=== PATIENT | male | born 1975 | race Hispanic/Latino ===

== ENCOUNTER 2019-12-31 23:51 | Emergency (ER) | payer BC ==
[~2019-12-31] VITALS: Ht 177.8 cm; Wt 108.9 kg
[2019-12-31] MEDS ORDERED: KETOROLAC TROMETHAMINE 30 MG/ML VIAL IV STA (23:57)
[2019-12-31] MEDS ORDERED: ONDANSETRON HCL INJ 2MG/ML 2ML 2 MG/ML VIAL IV STA (23:57)
[2020-01-01 00:18] LABS: BASOPHILS % 0.3 % (0.0-1.0); EOSINOPHILS # (AUTO) 0.3 (0.0-0.4); HEMATOCRIT 44.1 % (38.2-49.6); HEMOGLOBIN 15.1 g/dL (14.0-18.0); LYMPHOCYTES # (AUTO) 2.5 (1.0-3.2); LYMPHOCYTES % 21.8 % (18.0-39.1); MEAN CORPUSCULAR HEMOGLOBIN 27.8 pg (28-32); MEAN CORPUSCULAR HGB CONC 34.2 g/dL (31-35); MEAN CORPUSCULAR VOLUME 81.1 fL (81-99); MONOCYTES # (AUTO) 0.8 (0.2-0.8); MONOCYTES % 7.3 % (4.4-11.3); NEUTROPHILS # (AUTO) 7.6 (2.1-6.9); NEUTROPHILS % 67.1 % (38.7-80.0); PLATELET COUNT 294 x10e3/uL (140-360); RED BLOOD COUNT 5.44 x10e6/uL (4.3-5.7); RED CELL DISTRIBUTION WIDTH 12.4 % (11.7-14.4)
--- NOTE | 2020-01-01 00:24 | Emergency Department Note ---
History of Present Illnes History of Present Illness Chief Complaint: Genitourinary History of Present Illness This is a 44 year old male with h/o kidney stones presents with right sided flank pain that started about 1.5 hours ago with radiation to right groin. Patient states he has also had hematuria with blood clots for a couple of days. . Historian: Patient Arrival Mode: Car Onset (how long ago): hour(s) (1.5) Location: right flank Quality: pain Radiation: Reports abdomen (rlq) Severity: moderate Onset quality: sudden Duration (how long): hour(s) (1.5) Timing of current episode: constant Progression: unchanged Chronicity: new Context: Denies recent illness, Denies recent surgery, Denies recent travel, Denies trauma/injury Relieving factors: none Exacerbating factors: none Associated symptoms: Reports other (blood in urine for a couple of days) Treatments prior to arrival: none Past Medical/Family History Physician Review I have reviewed the patient's past medical and family history. Any updates have been documented here. Past Medical History Recent Fever: No Clinical Suspicion of Infectio: No New/Unexplained Change in Ment: No Past Medical History: Diabetes, Kidney Stones Past Surgical History: None Social History Smoking Cessation: Current some day smoker Alcohol Use: Occasional Any Illegal Drug Use: No Family History Family history of heart diseas: No Review of Systems Review of Systems Constitutional: Reports no symptoms EENTM: Reports no symptoms Cardiovascular: Reports no symptoms Respiratory: Reports no symptoms Gastrointestinal: Reports no symptoms Genitourinary: Reports as per HPI Musculoskeletal: Reports no symptoms Integumentary: Reports no symptoms Neurological: Reports no symptoms Psychological: Reports no symptoms Endocrine: Reports no symptoms Hematological/Lymphatic: Reports no symptoms Physical Exam Related Data Allergies: Coded Allergies: No Known Allergies (Unverified , 01/01/20) Triage Vital Signs Vital Signs Date Time Temp Pulse Resp B/P (MAP) Pulse Ox O2 Delivery O2 Flow Rate FiO2 12/31/19 23:55 98.6 98 20 164/93 100 Room Air Vital signs reviewed: Yes Physical Exam CONSTITUTIONAL Constitutional: Present well-developed, Present well-nourished, Present distressed (mild) HENT HENT: Present normocephalic, Present atraumatic, Present oropharynx clear/moist, Present nose normal HENT L/R: Present left ext ear normal, Present right ext ear normal EYES Eyes: Reports PERRL, Reports conjunctivae normal NECK Neck: Present ROM normal PULMONARY Pulmonary: Present effort normal, Present breath sounds normal CARDIOVASCULAR Cardiovascular: Present regular rhythm, Present heart sounds normal, Present capillary refill normal, Present normal rate GASTROINTESTINAL Abdominal: Present soft, Present bowel sounds normal, Present tender (mild right abd tenderness); Absent left CVA tenderness, Absent right CVA tenderness GENITOURINARY Genitourinary: Present exam deferred SKIN Skin: Present warm, Present dry MUSCULOSKELETAL Musculoskeletal: Present ROM normal NEUROLOGICAL Neurological: Present alert, Present oriented x 3, Present no gross motor or sensory deficits PSYCHOLOGICAL Psychological: Present mood/affect normal, Present judgement normal Results Laboratory Laboratory Laboratory Tests Test 01/01/20 00:59 01/01/20 00:06 Urine Color Red (YELLOW) Urine Clarity Turbid (CLEAR) Urine pH 5.5 (5 - 7) Urine Specific [place] 1.020 (1.010-1.025) Urine Protein >=300 (NEGATIVE) Urine Glucose (UA) 2+ (NEGATIVE) Urine Ketones 1+ (NEGATIVE) Urine Blood Large (NEGATIVE) Urine Nitrite Negative (NEGATIVE) Urine Bilirubin Large (NEGATIVE) Urine Urobilinogen 1 mg/dL (0.2 - 1) Urine Leukocyte Esterase Large (NEGATIVE) Urine RBC >50 /HPF (0-5) Urine WBC 6-10 /HPF (0-5) Urine Epithelial Cells Few /LPF (NONE) Urine Bacteria Moderate /HPF (NONE) White Blood Count 11.38 x10e3/uL (4.8-10.8) Red Blood Count 5.44 x10e6/uL (4.3-5.7) Hemoglobin 15.1 g/dL (14.0-18.0) Hematocrit 44.1 % (38.2-49.6) Mean Corpuscular Volume 81.1 fL (81-99) Mean Corpuscular Hemoglobin 27.8 pg (28-32) Mean Corpuscular Hemoglobin Concent 34.2 g/dL (31-35) Red Cell Distribution Width 12.4 % (11.7-14.4) Platelet Count 294 x10e3/uL (140-360) Neutrophils (%) (Auto) 67.1 % (38.7-80.0) Lymphocytes (%) (Auto) 21.8 % (18.0-39.1) Monocytes (%) (Auto) 7.3 % (4.4-11.3) Eosinophils (%) (Auto) 3.0 % (0.0-6.0) Basophils (%) (Auto) 0.3 % (0.0-1.0) Neutrophils # (Auto) 7.6 (2.1-6.9) Lymphocytes # (Auto) 2.5 (1.0-3.2) Monocytes # (Auto) 0.8 (0.2-0.8) Eosinophils # (Auto) 0.3 (0.0-0.4) Basophils # (Auto) 0.0 (0.0-0.1) Absolute Immature Granulocyte (auto 0.06 x10e3/uL (0-0.1) Sodium Level 134 mmol/L (136-145) Potassium Level 3.9 mmol/L (3.5-5.1) Chloride Level 98 mmol/L (98-107) Carbon Dioxide Level 24 mmol/L (22-29) Anion Gap 15.9 mmol/L (8-16) Blood Urea Nitrogen 11 mg/dL (7-26) Creatinine 0.87 mg/dL (0.72-1.25) Estimat Glomerular Filtration Rate > 60 ML/MIN (60-) BUN/Creatinine Ratio 13 (6-25) Glucose Level 236 mg/dL (74-118) Calcium Level 9.0 mg/dL (8.4-10.2) Laboratory Tests Test 01/01/20 00:06 Lab results reviewed: Yes Imaging Imaging results reviewed: Yes Impressions Procedure: [id number] CT/CT ABDOMEN/PELVIS WO Exam Date: 12/31/19 Exam Time: 2359 REPORT STATUS: Signed EXAM: CT Abdomen and Pelvis WITHOUT contrast INDICATION: flank pain, hematuria COMPARISON: None. TECHNIQUE: Abdomen and pelvis were scanned utilizing a multidetector helical scanner from the lung base to the pubic symphysis without administration of IV contrast. Absence of intravenous contrast decreases sensitivity for detection of focal lesions and vascular pathology. Coronal and sagittal reformations were obtained. Routine protocol was performed. IV CONTRAST: None ORAL CONTRAST: None COMPLICATIONS: None FINDINGS: Lack of IV contrast limits evaluation of the viscera and vasculature. LOWER THORAX: Unremarkable HEPATOBILIARY: The liver hypodense consistent with diffuse hepatic steatosis. No focal hepatic lesions. No biliary ductal dilation. GALLBLADDER: No radio-opaque stones or sludge. No wall thickening. SPLEEN: No splenomegaly. PANCREAS: No focal masses or ductal dilatation. ADRENALS: No adrenal nodules KIDNEYS/URETERS: 4.4 cm peripherally calcified lesion at the midpole of the left kidney is incompletely characterized on noncontrast exam. There is a suggested claw sign on the sagittal view. The right kidney is enlarged compared to the left. There is minimal right perinephric fat stranding. There is mild stranding about the right ureter. The right renal pelvis is mildly distended with hyperdense fluid. Additional right renal lesions are suspected. Left kidney is unremarkable. No urinary tract calculi. GI TRACT: No abnormal distention, wall thickening, or evidence of bowel obstruction. Appendix is normal. PELVIC ORGANS/BLADDER: There is dependent irregular intraluminal hyperdensity at the adjacent to the right UVJ. Mild circumferential wall thickening of the urinary bladder. LYMPH NODES: No lymphadenopathy. VESSELS: Unremarkable. PERITONEUM / RETROPERITONEUM: No free air or fluid. BONES: Unremarkable. SOFT TISSUES: Unremarkable. IMPRESSION: Lack of IV contrast limits evaluation of the viscera and vasculature. 1. Asymmetrically enlarged right kidney with mild right hydronephrosis with apparent hyperdense fluid in the renal pelvis. Mild perinephric and periureteral fat stranding. Differential includes right pyelonephritis versus hemorrhage into the right renal pelvis, possibly from right renal mass. 2. 4.4 cm partially peripherally calcified right renal mass is incompletely characterized on noncontrast exam. This mass is favored to originate from the right kidney, but a renal artery aneurysm is not excluded. Additional rounded convexities are present concerning for additional lesions. Consider renal mass protocol CT for further evaluation. 3. Irregular intraluminal hyperdensity within the urinary bladder may relate to to clot. Underlying urothelial lesion is not excluded. Signed by: Yolis Marin MD on 01/01/2020 1:28 AM Dictated By: YOLIS MARIN MD 7 Transcribed By: HUSSEIN on 01/01/20127 COPY TO: AHMET WEST MD~ EXAM: CT Abdomen and Pelvis WITH contrast INDICATION: RENAL MASS PROTOCOL COMPARISON: Noncontrast CT of the abdomen pelvis from today.. TECHNIQUE: Abdomen and pelvis were scanned utilizing a multidetector helical scanner from the lung base to the pubic symphysis after administration of IV contrast. Coronal and sagittal reformations were obtained. Routine protocol was performed. Scan was performed when during portal venous phase. IV CONTRAST: 100 mL of Isovue 370 ORAL CONTRAST: None COMPLICATIONS: None FINDINGS: Lobulated masslike structure 5.5 by 4.8 x 6.8 cm (AP x Transverse X CC) (7.7 cm in maximal dimension) in the posterior mid to superior pole of the right kidney. There is peripheral/rim calcification of the center of the mass. Serpiginous and patchy hyperenhancement/contrast blush is seen on arterial phase imaging, but dilutes out on excretory phase, concerning for active extravasation. Portions of the mass demonstrate variable hyperdensity ranging from 25-55 Hounsfield units. No significant change in Hounsfield units of the mass between arterial phase and excretory phase imaging. When correlating with the noncontrast images, the masslike structure does not definitely enhance. Low density within the renal pelvis extending into the distal ureter, likely represents clot. Excreted contrast is seen outlining the ureteral thrombus in the mid to distal ureter. Irregular hypodensity within the urinary bladder likely represents clot. Otherwise, no significant change from CT performed today. IMPRESSION: Indeterminate 7.7 cm lobulated masslike structure at the posterior aspect of the right kidney with some peripheral rim calcification centrally. Contrast blush within the lesion on arterial phase imaging is concerning for active extravasation, which is decompressing into the renal pelvis with large volume clot within the right renal pelvis and right ureter. Lesion does not definitely enhance on comparing to noncontrast exam performed today, although hyperdense blood products may limit evaluation. Differential includes a ruptured hemorrhagic cystic lesion versus solid mass including angiomyolipoma or renal cell carcinoma. Renal artery/intrarenal artery aneurysm less favored. Emergent urologic or vascular interventional radiology consultation is recommended. 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5 MG PO DAILY, #30 TAB 01/01/20 Metformin Hcl (METFORMIN HCL) 500 Mg Tablet, 1000 MG PO BID, #60 TAB 01/01/20 Medications in the ED Ondansetron HCl 4 mg NOW STAT IV Last administered on 01/01/20at 00:16; Admin Dose 4 MG; Start 12/31/19 at 23:57; Stop 01/01/20 at 00:00; Status DC Ketorolac Tromethamine 30 mg ONCE STAT IV Last administered on 01/01/20at 00:16; Admin Dose 30 MG; Start 12/31/19 at 23:57; Stop 01/01/20 at 00:00; Status DC AHMET WEST MD Jan 01, 2020 00:24
[2020-01-01 00:34] LABS: ANION GAP 15.9 mmol/L (8-16); BLOOD UREA NITROGEN 11 mg/dL (7-26); BUN/CREATININE RATIO 13 (6-25); CARBON DIOXIDE 24 mmol/L (22-29); CHLORIDE 98 mmol/L (98-107); CREATININE, SERUM 0.87 mg/dL (0.72-1.25); EST GLOMERULAR FILTRATION RATE > 60 ML/MIN (60-); GLUCOSE 236 mg/dL (74-118); POTASSIUM 3.9 mmol/L (3.5-5.1); SODIUM 134 mmol/L (136-145)
[2020-01-01 01:09] LABS: BILIRUBIN,URINE LARGE (NEGATIVE); CLARITY,URINE TURBID (CLEAR); COLOR,URINE RED (YELLOW); KETONES,URINE 1+ (NEGATIVE); LEUKOCYTE ESTERASE ,URINE LARGE (NEGATIVE); NITRITE,URINE NEGATIVE (NEGATIVE); PROTEIN,URINE DIPSTICK >=300 (NEGATIVE); URINE UROBILINOGEN 1 mg/dL (0.2 - 1)
[2020-01-01 01:17] LABS: BACTERIA,URINE MODERATE /HPF; EPITHELIAL CELLS,URINE FEW /LPF; RBC,URINE >50 /HPF (0-5)
--- NOTE | 2020-01-01 01:32 | Diagnostic Imaging Report ---
EXAM: CT Abdomen and Pelvis WITHOUT contrast INDICATION: flank pain, hematuria COMPARISON: None. TECHNIQUE: Abdomen and pelvis were scanned utilizing a multidetector helical scanner from the lung base to the pubic symphysis without administration of IV contrast. Absence of intravenous contrast decreases sensitivity for detection of focal lesions and vascular pathology. Coronal and sagittal reformations were obtained. Routine protocol was performed. IV CONTRAST: None ORAL CONTRAST: None COMPLICATIONS: None FINDINGS: Lack of IV contrast limits evaluation of the viscera and vasculature. LOWER THORAX: Unremarkable HEPATOBILIARY: The liver hypodense consistent with diffuse hepatic steatosis. No focal hepatic lesions. No biliary ductal dilation. GALLBLADDER: No radio-opaque stones or sludge. No wall thickening. SPLEEN: No splenomegaly. PANCREAS: No focal masses or ductal dilatation. ADRENALS: No adrenal nodules KIDNEYS/URETERS: 4.4 cm peripherally calcified lesion at the midpole of the left kidney is incompletely characterized on noncontrast exam. There is a suggested claw sign on the sagittal view. The right kidney is enlarged compared to the left. There is minimal right perinephric fat stranding. There is mild stranding about the right ureter. The right renal pelvis is mildly distended with hyperdense fluid. Additional right renal lesions are suspected. Left kidney is unremarkable. No urinary tract calculi. GI TRACT: No abnormal distention, wall thickening, or evidence of bowel obstruction. Appendix is normal. PELVIC ORGANS/BLADDER: There is dependent irregular intraluminal hyperdensity at the adjacent to the right UVJ. Mild circumferential wall thickening of the urinary bladder. LYMPH NODES: No lymphadenopathy. VESSELS: Unremarkable. PERITONEUM / RETROPERITONEUM: No free air or fluid. BONES: Unremarkable. SOFT TISSUES: Unremarkable. IMPRESSION: Lack of IV contrast limits evaluation of the viscera and vasculature. 1. Asymmetrically enlarged right kidney with mild right hydronephrosis with apparent hyperdense fluid in the renal pelvis. Mild perinephric and periureteral fat stranding. Differential includes right pyelonephritis versus hemorrhage into the right renal pelvis, possibly from right renal mass. 2. 4.4 cm partially peripherally calcified right renal mass is incompletely characterized on noncontrast exam. This mass is favored to originate from the right kidney, but a renal artery aneurysm is not excluded. Additional rounded convexities are present concerning for additional lesions. Consider renal mass protocol CT for further evaluation. 3. Irregular intraluminal hyperdensity within the urinary bladder may relate to to clot. Underlying urothelial lesion is not excluded. Signed by: Jared Ordonez MD on 01/01/2020 1:28 AM
[2020-01-01] MEDS ORDERED: METFORMIN HCL500 MG PO (02:55)
[2020-01-01] MEDS ORDERED: LISINOPRIL2.5 MG PO (03:30)
--- NOTE | 2020-01-01 03:41 | Diagnostic Imaging Report ---
EXAM: CT Abdomen and Pelvis WITH contrast INDICATION: RENAL MASS PROTOCOL COMPARISON: Noncontrast CT of the abdomen pelvis from today.. TECHNIQUE: Abdomen and pelvis were scanned utilizing a multidetector helical scanner from the lung base to the pubic symphysis after administration of IV contrast. Coronal and sagittal reformations were obtained. Routine protocol was performed. Scan was performed when during portal venous phase. IV CONTRAST: 100 mL of Isovue 370 ORAL CONTRAST: None COMPLICATIONS: None FINDINGS: Lobulated masslike structure 5.5 by 4.8 x 6.8 cm (AP x Transverse X CC) (7.7 cm in maximal dimension) in the posterior mid to superior pole of the right kidney. There is peripheral/rim calcification of the center of the mass. Serpiginous and patchy hyperenhancement/contrast blush is seen on arterial phase imaging, but dilutes out on excretory phase, concerning for active extravasation. Portions of the mass demonstrate variable hyperdensity ranging from 25-55 Hounsfield units. No significant change in Hounsfield units of the mass between arterial phase and excretory phase imaging. When correlating with the noncontrast images, the masslike structure does not definitely enhance. Low density within the renal pelvis extending into the distal ureter, likely represents clot. Excreted contrast is seen outlining the ureteral thrombus in the mid to distal ureter. Irregular hypodensity within the urinary bladder likely represents clot. Otherwise, no significant change from CT performed today. IMPRESSION: Indeterminate 7.7 cm lobulated masslike structure at the posterior aspect of the right kidney with some peripheral rim calcification centrally. Contrast blush within the lesion on arterial phase imaging is concerning for active extravasation, which is decompressing into the renal pelvis with large volume clot within the right renal pelvis and right ureter. Lesion does not definitely enhance on comparing to noncontrast exam performed today, although hyperdense blood products may limit evaluation. Differential includes a ruptured hemorrhagic cystic lesion versus solid mass including angiomyolipoma or renal cell carcinoma. Renal artery/intrarenal artery aneurysm less favored. Emergent urologic or vascular interventional radiology consultation is recommended. Consider renal mass protocol MRI for more definitive characterization Signed by: Jared Ordonez MD on 01/01/2020 3:37 AM
--- NOTE | 2020-01-01 05:38 | NUR ---
Patient continues to rest with no distress noted. Denies any pain at this time. Will continue to monitor patient.
--- NOTE | 2020-01-01 05:54 | NUR ---
[facility] ETA 1 hour.
[2020-01-01 06:06] VITALS: BP 130/80
--- NOTE | 2020-01-01 06:58 | NUR ---
Report to HEIDI Rodrigues
[2020-01-01] MEDS ORDERED: SODIUM CHLORIDE 0.9% 50ML 50 ML ONE (09:45)
[2020-01-01] MEDS ORDERED: IOPAMIDOL 370 MG/ML 200 ML INFUS..BTL INJ ONE (09:46)
== END 2020-01-01 07:43 | disposition other institution (70) ==
LOC: ER 23:56
DX: N28.89 Other specified disorders of kidney and ureter (principal); R31.0 Gross hematuria; M54.5 Low back pain; Z11.59 Encounter for screening for other viral diseases; E11.65 Type 2 diabetes mellitus with hyperglycemia; Z87.442 Personal history of urinary calculi; F17.210 Nicotine dependence, cigarettes, uncomplicated
CPT/HCPCS: 36415; 74176; 74177; 80048; 81001; 85025; 99284; J1885; J2405; Q9967; U0002

== ENCOUNTER 2022-07-16 15:17 | Inpatient (IN) | payer BC ==
[~2022-07-16] VITALS: Ht 185.4 cm; Wt 101.2 kg
[~2022-07-16 15:17] MED LIST: LISINOPRIL2.5 MG PO; METFORMIN HCL500 MG PO
[2022-07-16 16:00] LABS: BASOPHILS % 0.2 % (0.0-1.0); EOSINOPHILS # (AUTO) 0.2 (0.0-0.4); EOSINOPHILS % 2.2 % (0.0-6.0); HEMATOCRIT 42.7 % (38.2-49.6); HEMOGLOBIN 14.4 g/dL (14.0-18.0); LYMPHOCYTES % 20.1 % (18.0-39.1); MEAN CORPUSCULAR HEMOGLOBIN 28.4 pg (28-32); MEAN CORPUSCULAR HGB CONC 33.7 g/dL (31-35); MEAN CORPUSCULAR VOLUME 84.2 fL (81-99); MONOCYTES # (AUTO) 0.6 (0.2-0.8); MONOCYTES % 5.9 % (4.4-11.3); NEUTROPHILS # (AUTO) 7.1 (2.1-6.9); NEUTROPHILS % 71.3 % (38.7-80.0); PLATELET COUNT 312 x10e3/uL (140-360); RED BLOOD COUNT 5.07 x10e6/uL (4.3-5.7); RED CELL DISTRIBUTION WIDTH 12.3 % (11.7-14.4)
[2022-07-16] MEDS ORDERED: LACTATED RINGER'S 1,000 ML IV ONE (16:00)
[2022-07-16 16:14] LABS: INR 0.92; PROTHROMBIN TIME 12.9 seconds (11.9-14.5)
[2022-07-16 16:15] LABS: PARTIAL THROMBOPLASTIN TIME 23.8 seconds (23.8-35.5)
[2022-07-16 16:20] LABS: ALANINE AMINOTRANSFERASE 19 IU/L (0-55); ALBUMIN 3.8 g/dL (3.5-5.0); ALBUMIN/GLOBULIN RATIO 0.8 (0.8-2.0); ALKALINE PHOSPHATASE 95 IU/L (40-150); ANION GAP 17.9 mmol/L (8-16); BLOOD UREA NITROGEN 16 mg/dL (7-26); BUN/CREATININE RATIO 10 (6-25); CALCIUM 9.8 mg/dL (8.4-10.2); CARBON DIOXIDE 25 mmol/L (22-29); CHLORIDE 98 mmol/L (98-107); CREATININE, SERUM 1.64 mg/dL (0.72-1.25); GLUCOSE 334 mg/dL (74-118); POTASSIUM 3.9 mmol/L (3.5-5.1); SODIUM 137 mmol/L (136-145)
[2022-07-16] MEDS ORDERED: Vancomycin IV 1 GM in SODIUM CHLORIDE 0.9% 250ML 250 ML IV ONE (16:30)
[2022-07-16] MEDS ORDERED: DEXTROSE 50% SYRINGE 50 ML IV PRN (19:00)
[2022-07-16 20:00] VITALS: BP 143/86
[2022-07-16 20:30] VITALS: BP 143/86
[2022-07-16 21:00] VITALS: BP 143/86
[2022-07-16] MEDS: INSULIN REGULAR, HUMAN 100 UNIT/1 ML SQ SCH (22:31)
[2022-07-16] MEDS ORDERED: OMEPRAZOLE40 MG PO (23:35)
[2022-07-16] MEDS ORDERED: TRICOR145 MG PO (23:36)
[2022-07-16] MEDS ORDERED: METFORMIN HCL500 MG PO (23:39)
[2022-07-16] MEDS ORDERED: LISINOPRIL10 MG PO (23:41)
[2022-07-16] MEDS ORDERED: CRESTOR10 MG PO (23:43)
[2022-07-16] MEDS ORDERED: FEROSUL325 MG PO (23:44)
[2022-07-16] MEDS ORDERED: DOCUSATE SODIU100 MG PO (23:44)
[2022-07-17] VITALS (7 sets, daily range): BP systolic 120–132; BP diastolic 73–86
[2022-07-17 08:59] LABS: BASOPHILS % 0.2 % (0.0-1.0); EOSINOPHILS # (AUTO) 0.3 (0.0-0.4); EOSINOPHILS % 3.1 % (0.0-6.0); HEMATOCRIT 40.7 % (38.2-49.6); HEMOGLOBIN 14.1 g/dL (14.0-18.0); LYMPHOCYTES # (AUTO) 1.7 (1.0-3.2); LYMPHOCYTES % 19.7 % (18.0-39.1); MEAN CORPUSCULAR HEMOGLOBIN 28.5 pg (28-32); MEAN CORPUSCULAR HGB CONC 34.6 g/dL (31-35); MEAN CORPUSCULAR VOLUME 82.2 fL (81-99); MONOCYTES # (AUTO) 0.6 (0.2-0.8); MONOCYTES % 7.2 % (4.4-11.3); NEUTROPHILS % 69.5 % (38.7-80.0); PLATELET COUNT 319 x10e3/uL (140-360); RED BLOOD COUNT 4.95 x10e6/uL (4.3-5.7)
[2022-07-17 09:22] LABS: ALBUMIN 3.5 g/dL (3.5-5.0); ALBUMIN/GLOBULIN RATIO 0.8 (0.8-2.0); ANION GAP 14.3 mmol/L (8-16); CALCIUM 9.5 mg/dL (8.4-10.2); CREATININE, SERUM 1.21 mg/dL (0.72-1.25); MAGNESIUM 1.6 MG/DL (1.3-2.1); POTASSIUM 4.3 mmol/L (3.5-5.1)
[2022-07-17] MEDS: INSULIN REGULAR, HUMAN 100 UNIT/1 ML SQ SCH ×4 (11:30→21:22)
[2022-07-17] MEDS: DOCUSATE SODIUM 100 MG CAP PO SCH (11:38)
[2022-07-17] MEDS: LISINOPRIL 20 MG TAB PO SCH (11:39)
[2022-07-17] MEDS: FENOFIBRATE 145 MG TAB PO SCH (11:40)
[2022-07-17] MEDS: PANTOPRAZOLE SOD 40 MG TABEC PO SCH (11:40)
[2022-07-17] MEDS: SENNOSIDES 8.6 MG TAB PO SCH (11:40)
[2022-07-17] MEDS: FERROUS SULFATE 325 MG TAB PO SCH (21:22)
[2022-07-17] MEDS: SIMVASTATIN 20 MG TAB PO SCH (21:23)
[2022-07-17] MEDS ORDERED: SODIUM CHLORIDE 0.9% 250ML 250 ML ONE (21:28)
[2022-07-18] VITALS (7 sets, daily range): BP systolic 106–125; BP diastolic 66–81
[2022-07-18 05:34] LABS: BASOPHILS % 0.2 % (0.0-1.0); EOSINOPHILS # (AUTO) 0.3 (0.0-0.4); EOSINOPHILS % 4.2 % (0.0-6.0); HEMATOCRIT 39.2 % (38.2-49.6); HEMOGLOBIN 13.5 g/dL (14.0-18.0); LYMPHOCYTES # (AUTO) 1.8 (1.0-3.2); LYMPHOCYTES % 22.1 % (18.0-39.1); MEAN CORPUSCULAR HGB CONC 34.4 g/dL (31-35); MEAN CORPUSCULAR VOLUME 81.3 fL (81-99); MONOCYTES # (AUTO) 0.7 (0.2-0.8); MONOCYTES % 8.3 % (4.4-11.3); NEUTROPHILS # (AUTO) 5.3 (2.1-6.9); PLATELET COUNT 302 x10e3/uL (140-360); RED BLOOD COUNT 4.82 x10e6/uL (4.3-5.7); RED CELL DISTRIBUTION WIDTH 11.9 % (11.7-14.4)
[2022-07-18 05:51] LABS: ALBUMIN 3.5 g/dL (3.5-5.0); ALBUMIN/GLOBULIN RATIO 0.8 (0.8-2.0); ANION GAP 11.3 mmol/L (8-16); CALCIUM 9.2 mg/dL (8.4-10.2); CREATININE, SERUM 1.23 mg/dL (0.72-1.25); MAGNESIUM 1.8 MG/DL (1.3-2.1); POTASSIUM 4.3 mmol/L (3.5-5.1)
[2022-07-18] MEDS: INSULIN REGULAR, HUMAN 100 UNIT/1 ML SQ SCH ×4 (07:30→21:14)
[2022-07-18] MEDS: DOCUSATE SODIUM 100 MG CAP PO SCH (09:00)
[2022-07-18] MEDS: PANTOPRAZOLE SOD 40 MG TABEC PO SCH (09:00)
[2022-07-18] MEDS: FENOFIBRATE 145 MG TAB PO SCH (09:00)
[2022-07-18] MEDS: SENNOSIDES 8.6 MG TAB PO SCH (09:00)
[2022-07-18] MEDS ORDERED: BUPIVACAINE 0.25% 30ML SDV ONE (12:53)
[2022-07-18] MEDS ORDERED: DEXAMETHASONE SOD PHOS INJ 4 MG/ML SDV ONE (12:53)
[2022-07-18] MEDS ORDERED: SEVOFLURANE INHAL SOLN 250 ML PEN BTL ONE (13:03)
[2022-07-18] MEDS ORDERED: LIDOCAINE HCL 2% LOCAL INJ 5 ML SDV VIAL INJ ONE (13:03)
[2022-07-18] MEDS ORDERED: ONDANSETRON HCL INJ 2MG/ML 2ML 2 MG/ML VIAL ONE (13:03)
[2022-07-18] MEDS ORDERED: POVIDONE IODINE 0.05% 0.05 % ML PO ONE (13:03)
[2022-07-18] MEDS ORDERED: PROPOFOL IV EMULSION 10 MG/ML 20 ML VIAL ONE (13:03)
[2022-07-18] MEDS ORDERED: BUPIVACAINE HCL 0.5% INJ 30 ML VIAL INJ ONE (13:06)
[2022-07-18] MEDS ORDERED: FENTANYL CITRATE/PF 100MCG/2 ML INJ ONE ×2 (13:33→13:47)
[2022-07-18] MEDS: LISINOPRIL 20 MG TAB PO SCH (17:14)
[2022-07-18] MEDS ORDERED: INSULIN GLARGINE 100 UNITS/ML VIAL SQ SCH (21:00)
[2022-07-18] MEDS: FERROUS SULFATE 325 MG TAB PO SCH (21:04)
[2022-07-18] MEDS: SIMVASTATIN 20 MG TAB PO SCH (21:04)
[2022-07-18] MEDS: HYDROCODONE/APAP 5MG-325MG TAB PO PRN (21:08)
[2022-07-18] MEDS: ACETAMINOPHEN 325 MG TAB PO PRN (23:39)
[2022-07-19] VITALS: BP 108/70
[2022-07-19 04:00] VITALS: BP 108/68
[2022-07-19] MEDS: HYDROCODONE/APAP 5MG-325MG TAB PO PRN (04:38)
[2022-07-19 05:39] LABS: BASOPHILS % 0.4 % (0.0-1.0); EOSINOPHILS # (AUTO) 0.3 (0.0-0.4); EOSINOPHILS % 3.9 % (0.0-6.0); HEMATOCRIT 38.1 % (38.2-49.6); HEMOGLOBIN 12.7 g/dL (14.0-18.0); LYMPHOCYTES # (AUTO) 1.8 (1.0-3.2); LYMPHOCYTES % 21.9 % (18.0-39.1); MEAN CORPUSCULAR HGB CONC 33.3 g/dL (31-35); MEAN CORPUSCULAR VOLUME 83.9 fL (81-99); MONOCYTES # (AUTO) 0.7 (0.2-0.8); MONOCYTES % 8.1 % (4.4-11.3); NEUTROPHILS # (AUTO) 5.4 (2.1-6.9); NEUTROPHILS % 65.5 % (38.7-80.0); PLATELET COUNT 318 x10e3/uL (140-360); RED BLOOD COUNT 4.54 x10e6/uL (4.3-5.7); RED CELL DISTRIBUTION WIDTH 11.9 % (11.7-14.4)
[2022-07-19 06:18] LABS: ANION GAP 10.2 mmol/L (8-16); CREATININE, SERUM 1.2 mg/dL (0.72-1.25); MAGNESIUM 1.9 MG/DL (1.3-2.1); POTASSIUM 4.2 mmol/L (3.5-5.1)
[2022-07-19 08:04] VITALS: BP 119/73
[2022-07-19] MEDS ORDERED: AMOX TR-K CLV1 EAC2 PO (08:19)
[2022-07-19] MEDS ORDERED: HYDROCODON-ACE1 EA11 PO (08:19)
[2022-07-19] MEDS ORDERED: JARDIANCE10 MG PO (08:19)
[2022-07-19] MEDS ORDERED: OZEMPIC0.25 MG/0. SC (08:19)
[2022-07-19] MEDS ORDERED: BACTRIM DS TAB1 EACH PO (08:19)
[2022-07-19 09:00] VITALS: BP 119/73
[2022-07-19] MEDS: DOCUSATE SODIUM 100 MG CAP PO SCH (09:12)
[2022-07-19] MEDS: ACETAMINOPHEN 325 MG TAB PO PRN (09:12)
[2022-07-19] MEDS: PANTOPRAZOLE SOD 40 MG TABEC PO SCH (09:13)
[2022-07-19] MEDS: LISINOPRIL 20 MG TAB PO SCH (09:13)
[2022-07-19] MEDS: SENNOSIDES 8.6 MG TAB PO SCH (09:13)
[2022-07-19] MEDS: FENOFIBRATE 145 MG TAB PO SCH (09:13)
[2022-07-19] MEDS: INSULIN REGULAR, HUMAN 100 UNIT/1 ML SQ SCH (09:52)
== END 2022-07-19 09:52 | disposition home or self-care (01) | DRG 617 ==
LOC: ER 17:18 → ERHOLD 17:25 → MED/SURG 20:04
PROVIDERS: ADMIT Internal Medicine; ATTEND Internal Medicine
PROC: 0Y6R0Z0 Detachment at Right 2nd Toe, Complete, Open Approach (ICD-10-PCS; principal; 2022-07-18 12:56)
DX: E11.69 Type 2 diabetes mellitus with other specified complication (principal); M86.9 Osteomyelitis, unspecified; E11.65 Type 2 diabetes mellitus with hyperglycemia; Z79.4 Long term (current) use of insulin; E13.42 Other specified diabetes mellitus with diabetic polyneuropathy; E13.22 Other specified diabetes mellitus with diabetic chronic kidney disease; N18.9 Chronic kidney disease, unspecified
CPT/HCPCS: 0223U; 36415; 80048; 80053; 82948; 83036; 83735; 85025; 85610; 85730; 87040; 87071; 87075; 87186; 87205; 88304; 88305; 88311; 93925; 96372; 99284; J0692; J1100; J2001; J2405; J7050